=== PATIENT | female | born 1980 | race Hispanic/Latino ===

== ENCOUNTER 2025-06-05 21:40 | Emergency (ER) | payer BC ==
[~2025-06-05] VITALS: Ht 152.4 cm; Wt 105.2 kg
--- NOTE | 2025-06-05 22:20 | ERN ---
General Chief Complaint: Knee Injury/Swelling Stated Complaint: R KNEE PAIN Time Seen by MD: 21:55 History of Present Illness Initial Comments 44-year-old female with what sounds like sciatic pain two weeks. It started when she was getting out of her car and stumbled a little bit. She did not fall. Since that time she has just had pain running down the back of her right thigh knee and leg. In addition she has bright knee pain that makes it almost impossible for her to walk. She describes the pain as a kind of nerve pain Allergies: Coded Allergies: No Known Drug Allergies (Unverified Allergy, Unknown, 06/05/25) Past Medical History Past Medical History: Anxiety, Diabetes-Type II, Hypertension, Other Medical History Other: HYPERLIPIDEMIA Past Surgical History: Unknown ROS Dictation Review of systems is otherwise negative. Physical Exam Extremities Comment There was no obvious deformity in the patient's right lower extremity. She does not have an anterior or posterior drawer sign. She does not have ligamentous instability in her right knee joint. Posterior right knee seems tender but I can not localize it to a Carroll's cyst or to just the tendons. Results Laboratory and Microbiology Lab and Micro Result Laboratory Tests Test 06/05/25 22:30 Urine HCG, Qualitative NEGATIVE (NEGATIVE) MDM Sciatica versus soft tissue injury versus spinal stenosis Plain films of the patient's right knee are negative. CT scan of her lumbar spine shows disc bulge at L4-L5. ED Course Orders Procedure Category Date Status Time Ct Lumbar Spine W/O CT 06/05/25 Resulted Contrast 22:15 Knee 3vws Rt RAD 06/05/25 Resulted 22:15 Orphenadrine Citrate PHA 06/05/25 Complete (Norflex) 22:30 Ketorolac PHA 06/05/25 Complete Tromethamine 30mg/Ml 22:30 Triamcinolone Acet PHA 06/05/25 Complete 40mg/Ml 1ml (Kenalog 22:30 ,Urine Test LAB 06/05/25 Complete 22:15 Ketorolac PHA 06/06/25 Verified Tromethamine 30mg/Ml 01:00 Current Medications Medications (Trade) Dose Ordered Sig/Nereyda Route PRN Reason Start Time Stop Time Status Last Admin Dose Admin Ketorolac Tromethamine (toRADol) 30 mg ONCE ONCE IVP 06/05/25 22:30 06/05/25 22:44 DC 9/6/25 23:11 Orphenadrine Citrate (Norflex) 60 mg ONCE ONCE IVP 06/05/25 22:30 06/05/25 22:44 DC 06/05/25 23:13 Triamcinolone Acetonide (Kenalog 40) 40 mg ONCE ONCE IM 06/05/25 22:30 06/05/25 22:44 DC 06/05/25 23:16 Vital Signs Date Time Temp Pulse Resp B/P (MAP) Pulse Ox O2 Delivery O2 Flow Rate FiO2 06/06/25 00:05 98.4 71 12 111/65 97 Room Air* 0 21 06/05/25 22:34 98.8 86 12 149/63 92 Room Air* 0 21 06/05/25 21:43 98.8 80 20 149/63 92 0 DX & DISP Disposition: Discharge Departure Impression: Primary Impression: Bulging of intervertebral disc between L4 and L5 Additional Impression: Sciatica of right side Condition: Stable Additional Instructions: You have a bulging disc on L4 and L5 causing your symptoms. The discs are soft material in between the bones in your back bone. Sometimes the soft tissue pushes into the spinal cord itself causing the pain you experience. We called it sciatica. This can be treated by applying ice or heat to your lower back, taking pain relievers such as ibuprofen and Tylenol, physical therapy can help as well. Losing weight we will certainly help. Sometimes you need injections or surgeries to help this condition. You need to see a back surgeon and a physical therapist who can help guide your care for this. PETER RAMIREZ MD Jun 05, 2025 22:20
--- NOTE | 2025-06-05 22:38 | NUR ---
PENDING TEST RESULTS FOR CT EXAM.
--- NOTE | 2025-06-05 23:02 | HMCIMG ---
EXAM: CR right Knee, 3 View. CLINICAL HISTORY: knee pain COMPARISON: None provided. FINDINGS: BONES: No acute fracture or aggressive appearing osseous lesion. JOINTS: The joint spaces show no significant degenerative disease. There is no joint effusion appreciated. SOFT TISSUES: The soft tissues are unremarkable. IMPRESSION: No acute osseous pathology evident. /[place]
[2025-06-05] MEDS: ORPHENADRINE 60MG/2ML IVP ONE (23:13)
[2025-06-05] MEDS: TRIAMCINOLONE ACETONIDE 40 MG/ML 1ML VIAL IM ONE (23:16)
--- NOTE | 2025-06-06 00:02 | HMCIMG ---
EXAMINATION: CT Lumbar Spine without intravenous contrast. CLINICAL HISTORY: Sciatica. TECHNIQUE: Axial CT of the lumbar spine without intravenous contrast. Multiplanar reformations were generated and reviewed. CONTRAST: No intravenous contrast. COMPARISON: None provided. FINDINGS: ALIGNMENT Alignment is maintained. SPINAL CANAL AND NEURAL FORAMINA Mild diffuse disc bulge at the L4-L5 level with mildly indenting the bilateral traversing nerve roots. Disc calcification with mild bulge noted at L5. The rest of the disc spaces appear normal. DEGENERATIVE CHANGES No significant spondylosis. BONES No acute fracture or aggressive osseous lesion. SOFT TISSUES Paraspinal soft tissues are unremarkable. IMPRESSION Mild diffuse disc bulge at the L4-L5 level with mildly indenting the bilateral traversing nerve roots. No acute fracture or aggressive osseous lesion. /[place]
[2025-06-06 01:00] VITALS: BP 130/68; PULSE 70; RESP 18; TEMP 98.2; O2SAT 99
== END 2025-06-06 01:01 | disposition home or self-care (01) ==
LOC: EDH 21:40
DX: M51.369 Other intervertebral disc degeneration, lumbar region without mention of lumbar back pain or lower extremity pain (principal); M54.31 Sciatica, right side; E11.9 Type 2 diabetes mellitus without complications; E78.49 Other hyperlipidemia; I10 Essential (primary) hypertension; F41.9 Anxiety disorder, unspecified
CPT/HCPCS: 99284; 96374; 72131; 96375; 81025; 73562; 96372; 96376; J1885 ×2; J3301; J2360